=== PATIENT | male | born 1980 | race Caucasian/White ===

== ENCOUNTER → 2016-12-31 | Outpatient (CLI) | payer MEDICARE ==
[2016-12-31 16:11] LABS: HEMOGLOBIN 13.8 gm/dl (14.0-17.5); RED BLOOD COUNT 4.7 M/UL (4.20-5.50); WHITE BLOOD COUNT 10.8 K/UL (4.5-11.0)
[2016-12-31 16:33] LABS: BUN/CREATININE RATIO 8 (0-10)
== END ==
LOC: LAB 14:55
PROVIDERS: Internal Medicine Cardiovascular Disease
DX: F11.20 Opioid dependence, uncomplicated (principal); R79.9 Abnormal finding of blood chemistry, unspecified; Z79.899 Other long term (current) drug therapy; Z79.891 Long term (current) use of opiate analgesic
CPT/HCPCS: 36415; 80053; 82533; 84443; 85025; 86704; 86705; 86706; 86708; 86803; 87340; 87390

== ENCOUNTER → 2017-01-20 | Outpatient (CLI) | payer MEDICARE | LOC: LAB 11:42 | DX: T50.901A Poisoning by unspecified drugs, medicaments and biological substances, accidental (unintentional), initial encounter (principal) | CPT/HCPCS: 36415; 80178 ==